=== PATIENT | female | born 1980 | race Caucasian/White ===

== ENCOUNTER 2022-04-14 17:14 | Emergency (ER) | payer OTHER ==
[2022-04-14 23:20] LABS: BUN/CREATININE RATIO 10 (0-10)
[2022-04-14 23:34] LABS: HEMOGLOBIN 13.1 gm/dl (12.3-15.3); RED BLOOD COUNT 4.15 M/UL (4.00-5.10); WHITE BLOOD COUNT 19.6 K/UL (4.5-11.0)
[2022-04-15] MEDS ORDERED: LEVOFLOXACIN750 MG PO (00:06)
== END 2022-04-15 00:44 | disposition home or self-care (01) ==
LOC: ER1 17:14
PROVIDERS: Physician Assistant
DX: J18.9 Pneumonia, unspecified organism (principal); I50.9 Heart failure, unspecified; E11.9 Type 2 diabetes mellitus without complications; E78.5 Hyperlipidemia, unspecified; J45.909 Unspecified asthma, uncomplicated; F17.210 Nicotine dependence, cigarettes, uncomplicated; Z20.822 Contact with and (suspected) exposure to COVID-19
CPT/HCPCS: 0240U; 71045; 80053; 82550; 82553; 83605; 84484; 85025; 87040; 93005; 94664; 96372; 99285; J1100